=== PATIENT | male | born 1975 | race Two or more races ===

== ENCOUNTER 2024-08-17 08:17 | Emergency (ER) | payer MEDICAID, SELFPAY ==
[2024-08-17 08:34] VITALS: BP 164/94; PULSE 78; RESP 18; TEMP 36.7; O2SAT 99; BMI 25.0
--- NOTE | 2024-08-17 08:47 | XR_ITS ---
EXAMINATION: CT abdomen pelvis wo con ORDERING PROVIDER: OLENA Huggins HISTORY: Generalized abdominal pain with nausea and vomiting today. TECHNIQUE: Without intravenous or oral contrast, CT was used in the volumetric, helical imaging acquisition of the abdomen and pelvis with 2-D and 3-D reformats generated on a separate workstation and submitted for interpretation. Institutional dose reducing protocols were utilized. Evaluation of hollow viscus and solid viscera is limited secondary to lack of intravenous and oral contrast. RADIATION DOSE: DLP 312 mGy-cm COMPARISON: 07/06/2015, CT abdomen pelvis. FINDINGS: LIVER: Unremarkable. BILIARY: Unremarkable. PANCREAS: Unremarkable. SPLEEN: Scattered punctate calcifications, likely sequela of old granulomatous disease. ADRENAL GLANDS: Unremarkable. KIDNEYS: Unremarkable. URETERS: Unremarkable. BLADDER: Mostly decompressed. CT provides limited evaluation of the urinary bladder. HOLLOW VISCUS: Wall thickening with some submucosal fatty infiltration of the terminal ileum. No significant surrounding inflammatory changes. Scattered colonic diverticula without surrounding inflammatory changes. The majority of these are located in the sigmoid colon. Appendix nondilated. Fecal material in distal small bowel. Small hiatal hernia. Small bowel is not abnormally dilated. VASCULATURE: Limited evaluation without contrast. Progressed, moderate aortic calcific atherosclerotic disease. PELVIS: Prominent prostate. LYMPH NODES: Limited evaluation without contrast. Grossly unremarkable. LUNG BASES: Normal. BONES: Moderate bilateral sacroiliac joint ankylosis. ABDOMINAL WALL: Normal. IMPRESSION: 1. Wall thickening with submucosal fatty infiltration of the terminal ileum without acute inflammatory changes. Background moderate bilateral sacroiliac joint ankylosis. Query if patient has underlying inflammatory bowel disease. 2. Colonic diverticulosis without CT findings for diverticulitis. 3. Small hiatal hernia. 4. Progressive atherosclerotic disease. 5. Prominent prostate.
[2024-08-17] MEDS: ONDANSETRON ODT 4 MG TABRAP PO (09:03)
[2024-08-17] MEDS: HYDROcodone/APAP 5/325 TABLET 1 TAB PO (09:03)
--- NOTE | 2024-08-17 09:04 | EDNOTE_ITS ---
ED Abdominal Pain RME/HPI General Chief Complaint: Nausea/Vomiting/Diarrhea Stated complaint: SEVERE N/V, BODY ACHES, ABD PAIN X 3 DAYS Time seen by provider: 08/17/24 08:27 Arrival date/time: 08/17/24 08:17 49-year-old male with no known medical history presents to the emergency room with a chief complaint of nausea, vomiting, body aches, right upper quadrant abdominal pain and tenderness x 3 days Source: patient Mode of arrival: ambulatory Limitations: no limitations Related Data Allergies Allergy/AdvReac Type Severity Reaction Status Date / Time No Known Allergies Allergy Verified 08/17/24 08:22 Review of Systems Review of Systems Systems Reviewed: All systems reviewed, normal except as documented Constitutional Constitutional: Reports system reviewed and no additional complaints, except as documented, Denies fatigue, Denies fever(s), Denies headache(s) and Denies weakness Eyes Eyes: Reports system reviewed and no additional complaints, except as documented, Denies blurry vision and Denies change in vision ENT Ears, Nose, Mouth, and Throat: Reports system reviewed and no additional complaints, except as documented, Denies otalgia, Denies headache(s), Denies nasal congestion, Denies throat swelling and Denies vertigo Cardiovascular Cardiovascular: Reports system reviewed and no additional complaints, except as documented, Denies chest pain, Denies dyspnea and Denies dyspnea on exertion Respiratory Respiratory: Reports system reviewed and no additional complaints, except as documented, Denies chest congestion, Denies cough, Denies dyspnea, Denies dyspnea on exertion and Denies wheezing Gastrointestinal Gastrointestinal: Reports system reviewed and no additional complaints, except as documented, Reports abdominal pain, Reports cramping, Reports nausea and Reports vomiting Genitourinary Genitourinary: Reports system reviewed and no additional complaints, except as documented, Denies dysuria and Denies hematuria Musculoskeletal Musculoskeletal: Reports system reviewed and no additional complaints, except as documented and Denies back pain Integumentary/Breasts Skin/Breast: Reports system reviewed and no additional complaints, except as documented and Denies wounds Neurologic Neurologic: Reports system reviewed and no additional complaints, except as documented, Denies confusion, Denies headache(s), Denies lack of coordination, Denies vertigo and Denies weakness Psychiatric Psychiatric: Reports system reviewed and no additional complaints, except as documented, Denies anxiety, Denies confusion, Denies depression, Denies paranoia, Denies suicidal ideation and Denies tactile hallucinations Endocrine Endocrine: Reports system reviewed and no additional complaints, except as documented and Denies fatigue Hematologic/Lymphatic Hematologic/Lymphatic: Reports system reviewed and no additional complaints, except as documented and Denies lymphadenopathy Allergic/Immunologic Allergic/Immunologic: Reports system reviewed and no additional complaints, except as documented, Denies throat swelling, Denies urticaria and Denies wheezing ED Exam General Limitations: Present no limitations General appearance: Present alert and in no apparent distress Head Head exam: Present atraumatic Eye Eye exam: Present normal appearance, PERRL and EOMI ENT ENT exam: Present normal exam, normal oropharynx and mucous membranes moist Neck Neck exam: Present normal inspection, full ROM and trachea midline Chest Chest inspection: Present normal inspection and symmetric chest wall rise Respiratory Respiratory exam: Present normal lung sounds bilaterally; Absent respiratory distress, wheezes, stridor, accessory muscle use or prolonged expiratory phase Cardiovascular Cardiovascular exam: Present regular rate, normal rhythm and normal heart sounds Abdominal Exam Abdominal exam: Present soft, tenderness and normal bowel sounds; Absent distention, guarding, rebound, rigidity or Bhandari's sign Abdominal tenderness: Present RUQ, epigastrium and moderate Extremities Exam Extremities exam: Present normal inspection and full ROM Back Exam Back exam: Present normal inspection and full ROM Neurological Exam Neurological exam: Present alert, oriented X3 and CN II-XII intact Psychiatric Psychiatric exam: Present normal affect and normal mood Skin Skin exam: Present warm, dry, intact and normal color Course Quality Measures none Orders Category Date Time Status Bedside COVID-19 Antigen Test NOW Care 08/17/24 08:47 Active Bedside Influenza A&B Antigen Test NOW Care 08/17/24 08:[address] abdomen pelvis wo con Stat Exams 08/17/24 08:47 Completed CBC Stat Lab 08/17/24 09:25 Completed CMP [Comprehensive Metabolic Panel] Stat Lab 08/17/24 09:25 Completed Lipase Stat Lab 08/17/24 09:25 Completed UA [Urinalysis] Stat Lab 08/17/24 09:30 Completed Urine Culture Stat Lab 08/17/24 09:30 Received HYDROcodone*/APAP 5/325 [[place] 5/325] Med 08/17/24 08:47 Discontinued 1 tab PO X1 ONE Ketorolac Inj [Toradol Inj] Med 08/17/24 09:58 Discontinued 30 mg IM X1 ONE Ondansetron Odt [Zofran Odt] Med 08/17/24 08:47 Discontinued 4 mg PO X1 ONE Vital Signs Vital signs: Vital Signs Temperature 98.1 F 08/17/24 08:34 Pulse Rate 78 08/17/24 08:34 Respiratory Rate 18 08/17/24 08:34 Blood Pressure 164/94 H 08/17/24 08:34 Pulse Oximetry (%) 99 08/17/24 08:34 Oxygen Delivery Method Room Air 08/17/24 08:34 O2 saturation 99% within normal limits Abdominal Pain MDM MDM Narrative MDM Narrative:: 49-year-old male with no known medical history presents to the emergency room with a chief complaint of nausea, vomiting, body aches, right upper quadrant abdominal pain and tenderness x 3 days Patient is hemodynamically stable he is nontachycardic nontachypneic and is afebrile Physical examination shows abdominal epigastric tenderness as well as pain to the right upper quadrant. CT of the abdomen and pelvis was completed and was negative for any acute findings. The patient does have some diverticulosis which was explained to him but at this time there is no diverticulitis. Patient was educated that he needs to follow-up with his primary care provider for further workup CBC CMP urinalysis were all negative for any acute findings Patient was discharged and educated to follow-up with primary care provider in the next 24 to 48 hours and return to the emergency room for any evidence of worsening signs or symptoms Patient data External records reviewed:: [facility] previous records Clinical information provided by:: patient Social determinants that could affect healthcare access:: none Patient has the following chronic illnesses:: No chronic illness How is presenting disease/condition affected by chronic disease/condition?: no chronic disease Evaluation data The following diagnostics were reviewed and interpreted by me:: lab results and radiology exam(s) Lab and/or radiology exams considered but not ordered:: Labs and radiology exams considered and ordered Interpretation Summary: CT abdomen and pelvis-FINDINGS: LIVER: Unremarkable. BILIARY: Unremarkable. PANCREAS: Unremarkable. SPLEEN: Scattered punctate calcifications, likely sequela of old granulomatous disease. ADRENAL GLANDS: Unremarkable. KIDNEYS: Unremarkable. URETERS: Unremarkable. BLADDER: Mostly decompressed. CT provides limited evaluation of the urinary bladder. HOLLOW VISCUS: Wall thickening with some submucosal fatty infiltration of the terminal ileum. No significant surrounding inflammatory changes. Scattered colonic diverticula without surrounding inflammatory changes. The majority of these are located in the sigmoid colon. Appendix nondilated. Fecal material in distal small bowel. Small hiatal hernia. Small bowel is not abnormally dilated. VASCULATURE: Limited evaluation without contrast. Progressed, moderate aortic calcific atherosclerotic disease. PELVIS: Prominent prostate. LYMPH NODES: Limited evaluation without contrast. Grossly unremarkable. LUNG BASES: Normal. BONES: Moderate bilateral sacroiliac joint ankylosis. ABDOMINAL WALL: Normal. IMPRESSION: 1. Wall thickening with submucosal fatty infiltration of the terminal ileum without acute inflammatory changes. Background moderate bilateral sacroiliac joint ankylosis. Query if patient has underlying inflammatory bowel disease. 2. Colonic diverticulosis without CT findings for diverticulitis. 3. Small hiatal hernia. 4. Progressive atherosclerotic disease. 5. Prominent prostate. Medications / Prescriptions Medications or Prescriptions considered but not ordered:: Medication given Medication administrations:: Medication Administration History Discontinued Medications Hydrocodone Bitart/Acetaminophen (Hydrocodone/Apap 5/325 Tablet) 1 tab PO X1 ONE Stop: 08/17/24 08:48 Last Admin: 08/17/24 09:03 Dose: 1 tab Documented By: DIONNE Ketorolac Tromethamine (Ketorolac Inj 60 Mg/2 Ml Vial) 30 mg IM X1 ONE Stop: 08/17/24 09:59 Last Admin: 08/17/24 10:14 Dose: 30 mg Documented By: DIONNE Ondansetron HCl (Ondansetron Odt 4 Mg Tabrap) 4 mg PO X1 ONE; Protocol Stop: 08/17/24 08:48 Last Admin: 08/17/24 09:03 Dose: 4 mg Documented By: DIONNE Medication given Consultations Consultation(s) initiated? (list below): No Diagnosis Differential diagnosis abdominal pain: abdominal pain, acute appendicitis, constipation and gastroenteritis Most likely diagnosis given after review of the tests above:: Gastroenteritis Admission Indicated Admission indicated?: not indicated Admission Request Was there a request for admission?: No Disposition Plan Disposition Plan: Discharge Discharge Attestation Discharge Attestation: The patient and all family members were given an opportunity to ask questions and understood the discharge instructions. Discharge instructions specifically effects, indications for sooner follow up or return to the emergency department, and the expected course of current diagnosis. Patient condition: Stable Discharge Plan Plan Patient Disposition: HOME (Self Care) Disposition Comment: Stable Prescriptions/Referrals Referrals: No Primary/Family,Physician [Primary Care Provider] - In 1 week Problem List Clinical Impression: Gastroenteritis Patient/Caregiver Discharge Instructions Education Materials: ED Gastroenteritis, Noninfectious Additional Instructions: Please follow-up with your primary care provider in the next [address] of your abdomen and pelvis was negative for any acute findings. Blood work and urinalysis were negative for any acute findings For any evidence of worsening signs or symptoms return to the emergency room immediately Print Language: R[place] Stand Alone Forms: Gabbie Award Info., Patient Portal Info Letter PA/CHOKER SETTER Supervising Physician PA/CHOKER SETTER Supervising Physician: Dr. MUSE
[2024-08-17 09:41] LABS: Basophils % (Auto) 1 % (0-2.5); Eosinophils % (Auto) 0 % (0-10); Hematocrit 52.7 % (41.0-53.0); Hemoglobin 17.5 g/dL (13.5-16.0); Immature Granulocytes % (Auto) 1 % (0-0); Lymphocytes % (Auto) 11 % (10-50); Mean Corpuscular HGB Conc 33.2 g/dl (31.0-37.0); Mean Corpuscular Hemoglobin 27.8 pg (25.0-35.0); Mean Corpuscular Volume 84 fL (80-100); Monocytes # (Auto) 0.5 Thou/mm3 (0.0-0.8); Monocytes % (Auto) 6 % (0-12); Neutrophils % (Auto) 81 % (37-80); Nucleated Red Blood Cell % 0 /100 WBC (0); Platelet Count 273 Thou/mm3 (140-440); RDW Standard Deviation 43.8 fL (35.1-43.9); Red Blood Count 6.29 Miln/mm3 (4.50-5.90); White Blood Count 8.7 Thou/mm3 (3.8-10.6)
[2024-08-17 09:59] LABS: Collection Type, Urine Clean Catch; Squamous Epithelial Cell,Urine 0 /hpf (0-5)
[2024-08-17 10:08] LABS: Alanine Aminotransferase 20 U/L (10-49); Albumin, Serum 4.7 gm/dL (3.5-5.0); Albumin/Globulin Ratio 1.4 (1.2-2.2); Alkaline Phosphatase 80 U/L (46-116); Anion Gap 8 (7-16); Aspartate Amino Transferase 26 U/L (0-34); BUN/Creatinine Ratio 15 Ratio (12-20); Bilirubin,Total 0.7 mg/dL (0.3-1.2); Blood Urea Nitrogen 16 mg/dL (9-23); Calcium 9.1 mg/dL (8.3-10.6); Calcium (Corrected) 9.1 mg/dL (8.5-10.1); Carbon Dioxide 31.6 mMol/L (20.0-31.0); Chloride 98 mMol/L (98-107); Creatinine (Component) 1.1 mg/dL (0.6-1.3); Estimated Creatinine Clearance 80.3 mL/min (>60); Globulin 3.3 gm/dL (2.3-3.5); Glucose 106 mg/dL (74-106); Lipase 30 U/L (12-53); Osmolality,Calculated 276 (275-295); Potassium 3.8 mMol/L (3.4-5.1); Sodium 138 mMol/L (136-145); eGFR > 60 See Note
[2024-08-17 10:12] LABS: Bilirubin,Urine Negative (Negative); Blood,Urine Negative (Negative); Clarity,Urine Clear (Clear/Hazy); Color,Urine Yellow (Lt Yel-Yel); Glucose, Urine Negative (Negative); Ketones,Urine 2+ (Negative); Leukocyte Esterase,Urine Negative (Negative); Nitrite,Urine Negative (Negative); PH,Urine 6.5 (5.0-7.0); Protein,Urine 1+ (Neg - Trace); RBC,Urine 1 /hpf (0-3); Specific Gravity,Urine 1.032 (1.001-1.035); Urobilinogen,Urine Negative mg/dL (0.0-1.0); WBC,Urine 2 /hpf (0-5)
[2024-08-17] MEDS: KETOROLAC INJ 60 MG/2 ML VIAL 30 MG IM (10:14)
--- NOTE | 2024-08-17 10:14 | PC.NURSE ---
Patient states pain to head 10/10, and he still has severe nausea, Abdon CASHIER SUPERVISOR made aware.
== END 2024-08-17 13:05 | disposition home or self-care (01) ==
PROVIDERS: Nurse Practitioner Family; Emergency Provider Emergency Medicine
DX: K52.9 Noninfective gastroenteritis and colitis, unspecified (principal); K57.30 Diverticulosis of large intestine without perforation or abscess without bleeding; K44.9 Diaphragmatic hernia without obstruction or gangrene; I70.90 Unspecified atherosclerosis
CPT/HCPCS: 36415; 74176; 80053; 81001; 83690; 85025; 87086; 87400; 87811; 96372; 99284; J1885; Q0162; A9270

== ENCOUNTER 2025-02-22 03:46 | Emergency (ER) | payer OTHER, SELFPAY ==
[2025-02-22 03:47] VITALS: BMI 25.0
[2025-02-22 04:30] VITALS: BP 134/89; PULSE 77; RESP 19; TEMP 37.2; O2SAT 97
--- NOTE | 2025-02-22 04:44 | XR_ITS ---
Examination: Knee, left , 3 views Technique: Knee AP, lateral, oblique 3 views Date and time of exam: February 22, 2025, 0446 hrs. Indications: Work injury to the knee today, knee pain. Findings: No fracture or dislocation. Small knee effusion Impression: No fracture or dislocation
--- NOTE | 2025-02-22 04:45 | EDRME_ITS ---
Rapid Medical Screening Exam COUNT INCLUDES THE [facility] Arrival date/time: 02/22/25 03:46 50M with no significant PMH presents to ED with 3 weeks of itchy/painful rash on front of neck. Separately, patient has 1 day of generalized weakness and some nasal congestion. Patient also hit his L knee at work today. Chief Complaint: General Adult/Misc Complain Vital signs: Vital Signs Temperature 98.9 F 02/22/25 04:30 Pulse Rate 77 02/22/25 04:30 Respiratory Rate 19 02/22/25 04:30 Blood Pressure 134/89 H 02/22/25 04:30 Pulse Oximetry (%) 97 02/22/25 04:30 Oxygen Delivery Method Room Air 02/22/25 04:30
[2025-02-22 05:19] LABS: Basophils # (Auto) 0.1 Thou/mm3 (0.0-0.2); Basophils % (Auto) 1 % (0-2.5); Eosinophils # (Auto) 0.6 Thou/mm3 (0.0-0.5); Eosinophils % (Auto) 7 % (0-10); Hematocrit 49.8 % (41.0-53.0); Hemoglobin 16.5 g/dL (13.5-16.0); Immature Granulocytes Auto 0.03 Thou/mm3 (0.00-0.00); Lymphocytes # (Auto) 0.8 Thou/mm3 (1.0-4.8); Lymphocytes % (Auto) 10 % (10-50); Mean Corpuscular HGB Conc 33.1 g/dl (31.0-37.0); Mean Corpuscular Hemoglobin 27.8 pg (25.0-35.0); Mean Corpuscular Volume 84 fL (80-100); Monocytes # (Auto) 1.0 Thou/mm3 (0.0-0.8); Monocytes % (Auto) 12 % (0-12); Neutrophils # (Auto) 5.9 Thou/mm3 (1.8-7.7); Neutrophils % (Auto) 70 % (37-80); Nucleated Red Blood Cell # 0.00 Thou/mm3 (0.00-0.00); Nucleated Red Blood Cell % 0 /100 WBC (0); Platelet Count 187 Thou/mm3 (140-440); RDW Standard Deviation 42.2 fL (35.1-43.9); Red Blood Count 5.94 Miln/mm3 (4.50-5.90); White Blood Count 8.4 Thou/mm3 (3.8-10.6)
[2025-02-22 05:36] LABS: Alanine Aminotransferase 12 U/L (10-49); Albumin, Serum 4.4 gm/dL (3.5-5.0); Albumin/Globulin Ratio 1.5 (1.2-2.2); Alkaline Phosphatase 89 U/L (46-116); Anion Gap 7 (7-16); Aspartate Amino Transferase 17 U/L (0-34); BUN/Creatinine Ratio 11 Ratio (12-20); Bilirubin,Total 0.4 mg/dL (0.3-1.2); Blood Urea Nitrogen 13 mg/dL (9-23); Calcium 9.3 mg/dL (8.3-10.6); Calcium (Corrected) 9.3 mg/dL (8.5-10.1); Carbon Dioxide 30.0 mMol/L (20.0-31.0); Chloride 103 mMol/L (98-107); Creatine Kinase 116 U/L (34-171); Creatinine (Component) 1.2 mg/dL (0.6-1.3); Estimated Creatinine Clearance 72.8 mL/min (>60); Globulin 2.9 gm/dL (2.3-3.5); Glucose 96 mg/dL (74-106); Osmolality,Calculated 279 (275-295); Potassium 4.6 mMol/L (3.4-5.1); Sodium 140 mMol/L (136-145); Total Protein 7.3 gm/dL (5.7-8.2); eGFR > 60 See Note
[2025-02-22 05:50] LABS: Collection Type, Urine Clean Catch
[2025-02-22 06:01] LABS: Amphetamine/Methamp Scrn,U Negative (Negative); Barbiturate Screen,Urine Negative (Negative); Benzodiazepines Screen,Urine Negative (Negative); Benzoylecgonine Screen, Ur Negative (Negative); Fentanyl Screen,Urine Negative (Negative); Opiate Screen,Urine Negative (Negative); THC Screen,Urine Positive (Negative)
[2025-02-22 06:11] LABS: Bacteria,Urine Rare; Bilirubin,Urine Negative (Negative); Blood,Urine Negative (Negative); Clarity,Urine Clear (Clear/Hazy); Color,Urine Lt-Yellow (Lt Yel-Yel); Culture Indicated,Urine Not Indicated; Glucose, Urine Negative (Negative); Ketones,Urine Negative (Negative); Leukocyte Esterase,Urine Negative (Negative); Nitrite,Urine Negative (Negative); PH,Urine 6.0 (5.0-7.0); Protein,Urine Negative (Neg - Trace); RBC,Urine 1 /hpf (0-3); Specific Gravity,Urine 1.026 (1.001-1.035); Squamous Epithelial Cell,Urine < 1 /hpf (0-5); Urobilinogen,Urine Negative mg/dL (0.0-1.0); WBC,Urine < 1 /hpf (0-5)
--- NOTE | 2025-02-22 07:55 | PC.NURSE ---
called pt back, no answer at this time
--- NOTE | 2025-02-22 09:45 | PC.NURSE ---
PATIENT CALLED 3X FROM LOBBY. NO ANSWER INSIDE OR OUTSIDE THE LOBBY.
== END 2025-02-22 09:55 | disposition left against medical advice (07) ==
LOC: SERX 05:11
PROVIDERS: Physician Assistant; Emergency Provider Emergency Medicine; PCP Family Medicine
DX: R21 Rash and other nonspecific skin eruption (principal); R53.1 Weakness; R09.81 Nasal congestion; Z53.29 Procedure and treatment not carried out because of patient's decision for other reasons
CPT/HCPCS: 36415; 73562; 80053; 80307; 81001; 82550; 85025; 87400; 87811; 99283